=== PATIENT | male | born 1990 | race Caucasian/White ===

== ENCOUNTER 2023-03-07 08:08 | Emergency (ER) | payer SELFPAY ==
[~2023-03-07] VITALS: Ht 188 cm; Wt 122.8 kg
[2023-03-07 08:09] VITALS: BP 126/68
[2023-03-07] MEDS ORDERED: CYCL-707 PO (17:34)
[2023-03-07] MEDS ORDERED: IBUP80TA PO (17:34)
== END 2023-03-07 11:13 | disposition left against medical advice (07) ==
LOC: M ED 08:08
DX: Z53.21 Procedure and treatment not carried out due to patient leaving prior to being seen by health care provider (principal)

== ENCOUNTER 2023-03-07 13:06 | Emergency (ER) | payer OTHER, SELFPAY ==
[~2023-03-07] VITALS: Ht 188 cm; Wt 113.6 kg
[2023-03-07] MEDS ORDERED: KETOROLAC 60MG 2ML VIAL IM ONE (16:30)
[2023-03-07] MEDS ORDERED: CYCL-707 PO (17:34)
[2023-03-07] MEDS ORDERED: IBUP80TA PO (17:34)
[2023-03-07 17:38] VITALS: BP 143/75
== END 2023-03-07 17:40 | disposition home or self-care (01) ==
LOC: M ED 13:06
DX: M51.26 Other intervertebral disc displacement, lumbar region (principal)
CPT/HCPCS: 72131; 96372; 99283; J1885

== ENCOUNTER 2023-07-24 07:57 | Emergency (ER) | payer OTHER ==
[~2023-07-24] VITALS: Ht 188 cm; Wt 123.6 kg
[~2023-07-24 07:57] MED LIST: CYCL-707 PO; IBUP80TA PO
[2023-07-24] MEDS ORDERED: CYCL5TAB PO (09:41)
[2023-07-24] MEDS ORDERED: KETOROLAC 60MG 2ML VIAL IM ONE (10:40)
[2023-07-24] MEDS ORDERED: LIDOCAINE 5% (LIDODERM) PATCH TD ONE (10:40)
[2023-07-24] MEDS ORDERED: diazePAM 10 MG TAB PO ONE (10:40)
[2023-07-24] MEDS ORDERED: NAPR500T6 PO (10:46)
[2023-07-24] MEDS ORDERED: METH-1165 PO (10:46)
[2023-07-24] MEDS ORDERED: ANEC4CRE3 TOP (10:46)
[2023-07-24 11:31] VITALS: BP 117/73; TEMP 97.1; O2SAT 97
== END 2023-07-24 11:32 | disposition home or self-care (01) ==
LOC: M ED 07:57
DX: M54.50 Low back pain, unspecified (principal)
CPT/HCPCS: 72110; 96372; 99283; J1885